=== PATIENT | female | born 1975 | race Caucasian/White ===

== ENCOUNTER 2023-04-15 13:45 | Emergency (ER) | payer BC, SELFPAY ==
[2023-04-15 13:58] VITALS: BMI 47.5
--- NOTE | 2023-04-15 14:49 | ED_ITS ---
HPI - Back Pain/Injury General: Chief Complaint: Back Pain/Injury Stated Complaint: low back pain, radiating over buttocks down thighs Time Seen by Provider: 04/15/23 14:06 History of Present Illness: Patient is a 47-year-old female comes to the ED with chronic lower back pain. Patient is currently visiting this area [place]. She forgot her pain meds at home. She contacted her doctor in [place] and he tried to send some prescription to the pharmacy but they are [place] to do it [place]. She rates her back pain a 4 out of 10 constantly it is in the lower back and then it raises to a 7 out of 10 with certain movements. Patient says she is currently on 600 mg of gabapentin at noon and 800 mg at night. She has hydrocodone to take as needed at home. Denies any injury and says this pain is chronic. Associated symptoms: Deny abdominal pain, chills, dysuria, fatigue, fever(s), hematuria, nausea or vomiting Review of Systems Const: Denies: fever(s), chills or fatigue Eyes: Denies: change in vision or eye discomfort ENMT: Denies: throat pain, odynophagia, nasal discharge or nasal congestion Card: Denies: chest pain, palpitations, edema, swelling of feet/ankles, dyspnea on exertion or orthopnea Resp: Denies: dyspnea, productive cough or non-productive cough GI: Denies: abdominal pain, nausea, vomiting, diarrhea, constipation or hematochezia : Denies: flank pain, dysuria or hematuria Musc: Reports: back pain; Denies: neck pain or extremity swelling Skin/Breast: Denies: rash or new lesions Neuro: Denies: headache(s), numbness in extremities or weakness in extremities PFS ED PFSH: Medical History (Updated 04/15/23 @ 17:31 by HAMLET Valderrama) Chronic lumbar pain No pertinent family history Physical Exam Const: COMMON NORMALS: patient oriented x3 HENMT: COMMON NORMALS: normocephalic HEAD & SCALP: normocephalic MOUTH: Normal oral and palatal mucosa present THROAT: posterior oropharynx normal and uvula midline Neck/C-Spine: COMMON NORMALS: supple GENERAL: Yes normal visual inspection Resp: COMMON NORMALS: normal respiratory effort, No retractions, No use of accessory muscles and clear to auscultation bilaterally AUSCULTATION: clear to auscultation bilaterally Cardio: COMMON NORMALS: regular rate, regular rhythm, S1 normal heart sound present, S2 normal heart sound present, No gallops present (Cardio), No clicks present (Cardio), No murmurs present (Cardio) and Peripheral pulses 2+ throughout RATE: regular rate RHYTHM: regular rhythm HEART SOUNDS: S1 normal heart sound present and S2 normal heart sound present PERIPHERAL PULSES: Peripheral pulses 2+ throughout GI: COMMON NORMALS: Normal to inspection, nondistended, normoactive bowel sounds present, Soft to palpation, non-tender and no masses PALPATION: Yes Soft to palpation : COMMON NORMALS: Yes no CVA tenderness BLADDER/KIDNEY EXAM: Yes no CVA tenderness Back/Pelvis: COMMON NORMALS: no CVA tenderness LUMBAR SPINE/LOWER BACK: No lumbar spinal tenderness and Yes paraspinal muscle tenderness Lumbar paraspinal muscle tenderness: bilateral Bilateral lumbar paraspinal muscle tenderness: L4 and L5 Extremity: COMMON NORMALS: normal to inspection Neuro: COMMON NORMALS: patient oriented x3 GAIT: Yes Normal gait present Skin: GENERAL SKIN EXAM: dry skin MDM - Back Pain/Injury Medical Decision Making Patient is a 47-year-old female comes to the ED with chronic lower back pain. Patient is currently visiting this area [place] at [place]. She forgot her pain meds at home. She contacted her doctor in [place] and he tried to send some prescription to the pharmacy but they are unable to do it since it was [place] of state. She rates her back pain a 4 out of 10 constantly it is in the lower back and then it raises to a 7 out of 10 with certain movements. Patient says she is currently on 600 mg of gabapentin at noon and 800 mg at night. She has hydrocodone to take as needed at home. Denies any injury and says this pain is chronic. Vital stable. Patient appears nontoxic in no acute distress. She has some bilateral lumbar paraspinal muscle tenderness L4 and L5. Rest of exam is benign. She was given a dose of hydrocodone and methocarbamol here in the ED. She was stable for discharge home and diagnosed with chronic back pain and encounter for medication refill. She was sent home with a prescription for muscle relaxer, gabapentin and hydrocodone. Told to follow-up with her PCP in the next week for reevaluation. Patient understood and agreed with plan. Discharge Plan Discharge Patient Disposition: Home Clinical Impression: Encounter for medication refill Chronic back pain Qualifiers: Back pain location: low back pain Back pain laterality: bilateral Sciatica presence: unspecified whether sciatica present Qualified Code(s): M54.50 - Low back pain, unspecified Condition: Stable Prescriptions: New methocarbamol 750 mg tablet 750 mg PO Q8H PRN (Reason: Muscle spasms and pain) Qty: 20 0RF gabapentin 300 mg capsule 600 mg PO BID Qty: 40 0RF Discharge Orders: Discharge ED (Routine); Ordered 04/15/23 Ordered By: Julio Becerra Referrals: SU JOHNSON MD [Primary Care Provider] - Discharge Diet: Regular Discharge Activity: Increase activity as tolerated Patient Instructions: Chronic Back Pain (DC) Activity Restrictions/Additional Instructions: Follow-up with medical provider as directed. Take medications as prescribed. Return to the ER or your medical provider if condition worsens. Please read and understand discharge instructions. Thank you for choosing [facility] for your healthcare needs today. Please realize this is an emergency room and that we are providing you with a medical screening exam and this may not be complete and all inclusive of all the testing and or work up that you may need to determine your ailment or severity of your illness. It is very important that you follow up as instructed or that you return to the Emergency Department should you have concerns or if your condition changes or worsens in any way. Coding Level of Care Code ED [employer] for Yari Chang
[2023-04-15] MEDS: methocarbamol 750 mg Tablet PO (15:02)
[2023-04-15] MEDS: HYDROcodone-acetaminophen 7.5-325 mg Tablet 1 TAB PO (15:02)
== END 2023-04-15 15:32 | disposition home or self-care (01) ==
PROVIDERS: Emergency Provider Physician Assistant; PCP Family Medicine
DX: Z76.0 Encounter for issue of repeat prescription (principal); M54.50 Low back pain, unspecified; G89.29 Other chronic pain
CPT/HCPCS: 99283